=== PATIENT | female | born 1955 | race Caucasian/White ===

== ENCOUNTER 2019-03-27 06:06 | Day surgery (SDC) | payer OTHER ==
[2019-03-27] MEDS: PHENYLephrine 2.5% 15 ML OPH (PRE-OP) OPER (07:15)
[2019-03-27] MEDS: CIPROFLOXACIN 0.3% 2.5 ML OPH (PRE-OP) OPER (07:16)
[2019-03-27] MEDS: TETRACAINE 0.5% 4 ML OPH (PRE-OP) OPER (07:16)
[2019-03-27] MEDS: TROPICAMIDE 1% 15 ML OPH (PRE OP) OPER (07:16)
[2019-03-27] MEDS: DICLOFENAC 0.1% 2.5 ML OPH (PRE-OP) OPER (07:16)
[2019-03-27] MEDS: CYCLOPENTOLATE 1% 2 ML OPH OPER (07:16)
[2019-03-27] MEDS: LACTATED RINGER'S 1,000 ML IV (07:43)
[2019-03-27] MEDS ORDERED: CARBACHOL 0.01% 1.5 ML OPH INJ (07:48)
[2019-03-27] MEDS ORDERED: EPINEPHrine 1 MG INJ (07:48)
[2019-03-27] MEDS ORDERED: MIDAZOLAM 1 MG/ML 2 ML INJ (07:58)
[2019-03-27] MEDS ORDERED: ONDANSETRON 4 MG INJ IV (08:30)
[2019-03-27] MEDS ORDERED: OXYCODONE/ACETAMINOPHEN (5/325) TAB PO (08:30)
[2019-03-27] MEDS: LIDOCAINE 4% (MPF) 5 ML INJ (08:37)
[2019-03-27] MEDS: TETRACAINE 0.5% 4 ML OPH (08:38)
[2019-03-27] MEDS: TRYPAN BLUE 0.5 ML SYG IO (08:39)
[2019-03-27] MEDS: MOXIFLOXACIN 0.5% 3 ML OPH (08:39)
[2019-03-27] MEDS: TOBRAMYCIN/DEXAMETH 3.5 GM OPH OINT (08:40)
[2019-03-27] MEDS ORDERED: NA HYALURONATE/CHONDROITIN 0.5 ML SYG (09:24)
== END 2019-03-27 10:54 | disposition home or self-care (01) ==
LOC: SDS 06:06
DX: H26.1 Traumatic cataract (principal); I10 Essential (primary) hypertension
CPT/HCPCS: 66984